=== PATIENT | male | born 1965 | race Caucasian/White ===

== ENCOUNTER 2019-04-20 09:27 | Day surgery (SDC) | payer OTHER ==
[~2019-04-20] VITALS: Ht 175.3 cm; Wt 69.5 kg
[~2019-04-20 09:27] MED LIST: AMLO5 PO; ASPI325EC PO; HYDACE5; HYDCHL12.5 PO; LISI20 PO; LORA.5 PO; NAPR500; NAPR500 PO; OXYC5 PO; PROM25 PO
--- NOTE | 2019-04-20 10:09 | NUR ---
INTO [facility] ADMISSION STARTED
--- NOTE | 2019-04-20 10:29 | NUR ---
04/20/19 1029 Karan Monsivais PATIENT DETERMINED TO BE ASA APPROPRIATE FOR PROPOFOL SEDATION PRIOR TO START OF PROCEDURE BY . 3-LEAD EKG REVIEWED WITH PHYSICIAN PRIOR TO START OF PROCEDURE.PATIENT CONFIRMS NPO STATUS AND AGREES WITH SCHEDULED PROCEDURE.History, Chart, Medications and Allergies reviewed before start of procedure.MONITOR INTACT WITH CONTINUOUS PULSE OXIMETRY AND INTERMITTENT BP.O2 VIA N/C INTACT THROUGHOUT SEDATION/PROCEDURE.
--- NOTE | 2019-04-20 11:12 | NUR ---
RECEIVED REPORT FROM ENDO RN (YOLIS). PT IS LAYING ON LT SIDE RESTING QUIETLY. ANSWERS QUESTIONS. VSS.
--- NOTE | 2019-04-20 11:17 | NUR ---
DR SALDANA CAME AND SPOKE TO PT. PT NOW SITTING UP DOES NOT WANT ANYTHING TO DRINK. FRIEND IS IN CAR WAITING
--- NOTE | 2019-04-20 11:33 | NUR ---
Discharge instructions reviewed with patient. Patient verbalizes understanding. Copy given to patient to take home. PT HAS NO QUESTIONS OR CONCERNS WITH D/C. Patient States Post-Procedure ride home has been arranged. PT HAS ALL PERSONAL BELONGINGS. NO COMPLANTS. PT STABLE. Discharged via wheelchair to private car for ride home.
== END 2019-04-20 23:07 | disposition home or self-care (01) ==
LOC: ORSCMMR 09:27 → ORD 10:30 → ORSCMMR 23:07
PROVIDERS: Internal Medicine Gastroenterology
PROC: 0DBP8ZX Excision of Rectum, Via Natural or Artificial Opening Endoscopic, Diagnostic (ICD-10-PCS; principal; 2019-04-20 10:30)
PROC: 0DBK8ZX Excision of Ascending Colon, Via Natural or Artificial Opening Endoscopic, Diagnostic (ICD-10-PCS; principal; 2019-04-20 10:30)
DX: Z12.11 Encounter for screening for malignant neoplasm of colon (principal); D12.2 Benign neoplasm of ascending colon; K62.1 Rectal polyp; K57.30 Diverticulosis of large intestine without perforation or abscess without bleeding; J44.9 Chronic obstructive pulmonary disease, unspecified; I10 Essential (primary) hypertension; Z87.891 Personal history of nicotine dependence; Z79.899 Other long term (current) drug therapy
CPT/HCPCS: 88305; J2704; J7120

== ENCOUNTER 2021-03-15 18:10 | Emergency (ER) | payer OTHER ==
[~2021-03-15] VITALS: Ht 175.3 cm; Wt 70.3 kg
[2021-03-15 18:53] LABS: BASOPHILS ABSOLUTE AUTO 0.06 K/mm3 (0.00-0.23); BASOPHILS PERCENT AUTO 1 % (0-2); EOSINOPHILS ABSOLUTE AUTO 0.23 K/mm3 (0.00-0.68); EOSINOPHILS PERCENT AUTO 2 % (0-6); Hemoglobin 14.8 g/dL (13.5-17.5); IMMATURE GRAN ABSOLUTE AUTO 0.04 K/mm3 (0.00-0.10); IMMATURE GRAN PERCENT AUTO 0 % (0-1); LYMPHOCYTES ABSOLUTE AUTO 2.08 K/mm3 (0.84-5.20); LYMPHOCYTES PERCENT AUTO 17 % (21-46); MONOCYTES ABSOLUTE AUTO 0.72 K/mm3 (0.16-1.47); MONOCYTES PERCENT AUTO 6 % (4-13); Mean Corpuscular HGB Conc 33.6 g/dL (31.5-36.5); Mean Corpuscular Volume 92 fL (80-100); Mean Platelet Volume 9.5 fL (9.1-12.4); NEUTROPHILS ABSOLUTE AUTO 9.02 K/mm3 (1.96-9.15); NEUTROPHILS PERCENT AUTO 74 % (41-73); Platelet Count 322 K/mm3 (150-400); RDW Coefficient Variation 13.5 % (11.7-14.2); RDW Standard Deviation 46.3 fL (35.1-46.3); Red Blood Cell Count 4.78 M/mm3 (4.30-5.90); White Blood Cell Count 12.15 K/mm3 (4.00-11.30)
[2021-03-15 19:07] LABS: Albumin, Blood 3.7 g/dL (3.4-5.0); Bilirubin, Total 0.5 mg/dL (0.1-1.0); Bun/Creatinine Ratio 14.8 (12.0-20.0); Calcium, Blood 9.3 mg/dL (8.5-10.1); Creatinine, Blood 1.35 mg/dL (0.60-1.20); Globulin, Blood 3.8 g/dL (2.2-4.0); Potassium, Blood 3.8 mmol/L (3.5-5.5); Total Protein, Blood 7.5 g/dL (6.4-8.2)
== END 2021-03-15 22:36 | disposition other institution (70) ==
LOC: ER 18:10
PROVIDERS: Emergency Medicine
DX: N28.89 Other specified disorders of kidney and ureter (principal); H49.01 Third [oculomotor] nerve palsy, right eye; Z79.899 Other long term (current) drug therapy
CPT/HCPCS: 70496; 80053; 85025; 93005; 93010; 99285-25; G0480; Q9967

== ENCOUNTER → 2022-03-11 | Outpatient (CLI) | payer OTHER ==
[2022-03-14 13:11] LABS: COTININE Negative ng/mL (Cutoff=300)
== END | disposition home or self-care (01) ==
LOC: LAB 15:50 → LAB SHORT 15:50
PROVIDERS: Orthopaedic Surgery
DX: Z01.812 Encounter for preprocedural laboratory examination (principal); M16.11 Unilateral primary osteoarthritis, right hip; Z87.891 Personal history of nicotine dependence

== ENCOUNTER 2022-04-28 06:09 | Day surgery (SDC) | payer OTHER ==
[~2022-04-28] VITALS: Ht 175.3 cm; Wt 69.5 kg
--- NOTE | 2022-04-28 10:56 | NUR ---
PATIENT CAME BACK FROM PACU TODAY 04/28/22 AT 1030. POD 0 RIGHT HIP REPAIR PATIENT IS VERY SLEEPY BUT DOES OPEN HIS EYES WITH TOUCH. VS ARE WNL AND IS ON 2NC WITH >90% OXYGEN SATS. PATIENT DENIES PAIN AT THIS TIME. RIGHT HIP HAS AN AQUACEL THAT IS C/D/I. PEDAL PULSES ARE STRONG AND WARM TO TOUCH. POLAR PACK IS APPLIED TO RIGHT HIP. PATIENT IS SNORING LAYING IN BED. CALL LIGHT WITHIN REACH. MOTHER IS AT BEDSIDE AND HAS TAKEN THE HARD PERSCRIPTIONS TO BE FILLED OUT PRIOR TO THE PATIENT TO BE DISCHARGED. PERSCRIPTIONS HAVE COPIES IN THE PATIENTS FOLDER.
[2022-04-28] MEDS ORDERED: Aspir 8181 MG PO (11:00)
[2022-04-28] MEDS ORDERED: Percocet 5-3251 EACH PO (11:01)
--- NOTE | 2022-04-28 15:10 | NUR ---
SHIFT SUMMARY: POD 0 RIGHT HIP REPAIR PATIENT IS NOW MORE AWAKE THAN BEFORE. HIS BP IS SOFT BUT IS NOW EATING/DRINKING MORE OTHERWISE HIS VS ARE WNL AND ON RA. PATIENT DENIES PAIN AT THIS TIME. HE CAN MOVE FINGERS AND TOES. DENIES NAUSEA AND VOMITING. HE HAS AN AQUACEL ON THE INCISION THAT IS C/D/I WITH POLAR PACK IN PLACE. HE IS VOIDING/PASSING SMALL AMOUNTS OF GAS. FAMILY IS AT BEDSIDE. CALL LIGHT WITHIN REACH. THE PLAN IS TO WORK WITH PT/OT AGAIN TOMORROW AND HAVE PAIN MANAGED. THEN TO POSSIBLY BE DISCHARGED HOME IF APPROPRIATE.
--- NOTE | 2022-04-29 05:16 | NUR ---
SHIFT SUMMARY: PT TOLERATING PO FLUIDS. DENIES N/V AT THIS TIME. PAIN MANAGED WELL. PT SLEPT T/O SHIFT. NO NEW COMPLAINTS. PT DRESSING C/D/I. PT TOLERATED AMBULATION WITH FWW WELL. PT WAS ABLE TO VOID USING URINAL AT BEDSIDE. PLANS TO DISCHARGE TODAY.
[2022-04-29 05:29] LABS: BASOPHILS ABSOLUTE AUTO 0.02 K/mm3 (0.00-0.23); BASOPHILS PERCENT AUTO 0 % (0-2); EOSINOPHILS PERCENT AUTO 0 % (0-6); Hematocrit 28.4 % (37.0-53.0); Hemoglobin 9.2 g/dL (13.5-17.5); IMMATURE GRAN ABSOLUTE AUTO 0.05 K/mm3 (0.00-0.10); IMMATURE GRAN PERCENT AUTO 0 % (0-1); LYMPHOCYTES PERCENT AUTO 13 % (21-46); MONOCYTES ABSOLUTE AUTO 1.12 K/mm3 (0.16-1.47); MONOCYTES PERCENT AUTO 9 % (4-13); Mean Corpuscular HGB 30.4 pg (26.0-34.0); Mean Corpuscular HGB Conc 32.4 g/dL (31.5-36.5); Mean Corpuscular Volume 94 fL (80-100); Mean Platelet Volume 10.2 fL (9.1-12.4); NEUTROPHILS ABSOLUTE AUTO 10.32 K/mm3 (1.96-9.15); NEUTROPHILS PERCENT AUTO 78 % (41-73); Platelet Count 222 K/mm3 (150-400); RDW Coefficient Variation 15.5 % (11.7-14.2); RDW Standard Deviation 53.5 fL (35.1-46.3); Red Blood Cell Count 3.03 M/mm3 (4.30-5.90); White Blood Cell Count 13.21 K/mm3 (4.00-11.30)
[2022-04-29 06:02] LABS: Bun/Creatinine Ratio 26.5 (12.0-20.0); Calcium, Blood 7.7 mg/dL (8.5-10.1); Creatinine, Blood 0.94 mg/dL (0.60-1.20); Potassium, Blood 4.4 mmol/L (3.5-5.5)
--- NOTE | 2022-04-29 09:30 | NUR ---
DISCHARGE PT HAS CLEARED THERAPY. WAS UNSURE ABOUT ANY OUTPT THERAPY. DR BEAR's OFFICE THEN [facility] CALLED. PT GIVEN HANDWRITTEN INSTRUCTIONS ON LOCATION & TIME/DATE OF FIRST APPOINTMENT. PAIN WELL CONTROLLED w/ NON-NARCOTIC MANAGEMENT. EATING, DRINKING, & VOIDING WELL. JULIÁN & LASHANDA HERNANDEZ SENT w/ PT. ESCORTED OUT VIA W/C.
== END 2022-04-29 10:30 | disposition home or self-care (01) ==
LOC: ORSCMMR 06:09 → ORD 07:30 → SURS 10:23 → ORD 11:30 → ORSCMMR 04-29 10:30
PROVIDERS: Orthopaedic Surgery
PROC: 0SR90JZ Replacement of Right Hip Joint with Synthetic Substitute, Open Approach (ICD-10-PCS; principal; 2022-04-28 07:30)
DX: M16.11 Unilateral primary osteoarthritis, right hip (principal); Z96.642 Presence of left artificial hip joint; I10 Essential (primary) hypertension; Z87.891 Personal history of nicotine dependence; Z79.899 Other long term (current) drug therapy
CPT/HCPCS: 36415; 72170; 80048; 85025; 97110; 97116; 97161; 97530; A9270; C1776; J0171; J0690; J0735; J1100; J1885; J2250; J2405; J2704; J2795; J3010; J7120

== ENCOUNTER 2022-06-23 02:30 | Emergency (ER) | payer OTHER ==
[~2022-06-23] VITALS: Ht 175.3 cm; Wt 72.6 kg
[~2022-06-23 02:30] MED LIST changes: +Aspir 8181 MG PO; +Percocet 5-3251 EACH PO
[2022-06-23] MEDS ORDERED: NARCAN4 M1 (05:31)
== END 2022-06-23 06:12 | disposition home or self-care (01) ==
LOC: ER 02:30
DX: T40.601A Poisoning by unspecified narcotics, accidental (unintentional), initial encounter (principal); R11.2 Nausea with vomiting, unspecified; I10 Essential (primary) hypertension; Z79.899 Other long term (current) drug therapy; Z79.82 Long term (current) use of aspirin; Z87.891 Personal history of nicotine dependence
CPT/HCPCS: 82947; A9270; J2405

== ENCOUNTER → 2024-10-25 | Outpatient (CLI) | payer OTHER ==
[~2024-10-25] MED LIST changes: +NARCAN4 M1
[2024-10-25 15:53] LABS: BASOPHILS ABSOLUTE AUTO 0.07 K/mm3 (0.00-0.23); BASOPHILS PERCENT AUTO 1 % (0-2); EOSINOPHILS ABSOLUTE AUTO 0.24 K/mm3 (0.00-0.68); EOSINOPHILS PERCENT AUTO 3 % (0-6); Hematocrit 41.5 % (37.0-53.0); IMMATURE GRAN ABSOLUTE AUTO 0.03 K/mm3 (0.00-0.10); IMMATURE GRAN PERCENT AUTO 0 % (0-1); LYMPHOCYTES ABSOLUTE AUTO 1.88 K/mm3 (0.84-5.20); LYMPHOCYTES PERCENT AUTO 19 % (21-46); MONOCYTES ABSOLUTE AUTO 0.64 K/mm3 (0.16-1.47); MONOCYTES PERCENT AUTO 7 % (4-13); Mean Corpuscular HGB 30.4 pg (26.0-34.0); Mean Corpuscular HGB Conc 33.7 g/dL (31.5-36.5); Mean Corpuscular Volume 90 fL (80-100); Mean Platelet Volume 10.1 fL (9.1-12.4); NEUTROPHILS ABSOLUTE AUTO 6.84 K/mm3 (1.96-9.15); NEUTROPHILS PERCENT AUTO 71 % (41-73); Platelet Count 267 K/mm3 (150-400); RDW Coefficient Variation 13.6 % (11.7-14.2); RDW Standard Deviation 45.2 fL (35.1-46.3)
[2024-10-25 16:58] LABS: Alanine Aminotransfer (ALT/SGP 16 U/L (12-78); Albumin, Blood 3.2 g/dL (3.4-5.0); Albumin/Globulin Ratio 0.9 (0.8-1.8); Alk Phos 94 U/L (50-136); Anion Gap 10 mmol/L (3-11); Aspartate Aminotrans (AST/SGOT 13 U/L (12-37); Bilirubin, Total 0.5 mg/dL (0.1-1.0); Blood Urea Nitrogen 22 mg/dL (8-24); CHOL/HDL RATIO 2.9; CO2, Blood 27 mmol/L (21-32); Calcium, Blood 8.9 mg/dL (8.5-10.1); Chloride, Blood 106 mmol/L (98-108); Cholesterol 138 mg/dL (50-200); Globulin, Blood 3.7 g/dL (2.2-4.0); Glucose, Blood 124 mg/dL (70-99); HDL Cholesterol 47 mg/dL (>39); LDL/HDL RATIO 1.7; Low Density Lipoprotein Chol 81 mg/dL (0-110); Potassium, Blood 3.7 mmol/L (3.5-5.5); Sodium, Blood 139 mmol/L (136-145); Total Protein, Blood 6.9 g/dL (6.4-8.2); Triglycerides 49 mg/dL (30-160); Very Low Density Lipoprot Chol 9 mg/dL (6-32)
[2024-10-25 17:08] LABS: Creatinine, Blood 0.92 mg/dL (0.60-1.20); Glomerular Filtration Rate 95 (60-); Prostate Specific Antigen 0.512 ng/mL (0.000-4.000)
[2024-10-29 15:36] LABS: HCV GENOTYPE BY SEQUENCING Indeterminate
== END ==
LOC: LAB 14:33 → LAB SHORT 14:33
PROVIDERS: Physician Assistant
DX: B18.2 Chronic viral hepatitis C (principal); Z79.899 Other long term (current) drug therapy; Z12.5 Encounter for screening for malignant neoplasm of prostate
CPT/HCPCS: 80053; 80061; 82306; 83036; 84443; 85025; 87902; G0103

== ENCOUNTER → 2024-12-07 | Outpatient (CLI) | payer OTHER ==
[2024-12-07 19:33] LABS: Bun/Creatinine Ratio 19.8 (12.0-20.0); Calcium, Blood 8.7 mg/dL (8.5-10.1); Creatinine, Blood 1.11 mg/dL (0.60-1.20); Potassium, Blood 3.9 mmol/L (3.5-5.5)
[2024-12-08 19:03] LABS: HCV QNT BY NAAT (IU/ML) Not Detected; HCV QNT BY NAAT (LOG IU/ML) Not Detected; HCV QNT BY NAAT INTERP Not Detected (Not Detected)
== END ==
LOC: LAB SHORT 15:20 → LAB 15:20
PROVIDERS: Physician Assistant
DX: I10 Essential (primary) hypertension (principal); B18.2 Chronic viral hepatitis C
CPT/HCPCS: 80048; 87522